=== PATIENT | female | born 1965 | race Caucasian/White ===

== ENCOUNTER 2016-10-18 19:33 | Inpatient (IN) | payer OTHER ==
[~2016-10-18] VITALS: Ht 154.9 cm; Wt 71.3 kg
[~2016-10-18 19:33] MED LIST: COGENTIN0.5 MG PO; DEPAKOTE ER250 MG PO; ESKALITH300 M1 PO; FLOMAX0.4 MG PO; Flomax PO; GABAPENTIN300 MG PO; IBUPROFEN600 MG PO; LEVOXYL125 MCG PO; LEVOXYL25 MCG PO; LITHIUM CARBON300 MG PO; LITHIUM CARBON600 MG PO; LORTAB 5-325 M1 EACH PO; Levothroid,Synthroid PO; MOTRIN600 MG PO; MULTIPLE VITAM1 EACH PO; MUPIROCIN15 GM TP; NEURONTIN300 MG PO; PERCOCET 5/31 TABLET PO; SEROQUEL200 MG PO; SEROQUEL400 MG PO; SYNTHROID125 MCG PO; SYNTHROID25 MCG PO; THERAGRAN1 TABLET PO; TOPAMAX100 MG PO; TOPAMAX200 MG PO; TRAMADOL HCL50 MG PO; WELLBUTRIN SR100 MG PO; WELLBUTRIN SR200 MG PO
[2016-10-18 20:05] LABS: HEMATOCRIT 31.1 % (36.0-46.0); MCH 29.7 PG (29.0-34.0); MCHC 33.8 G/DL (30.0-36.0); MCV 88.1 FL (83-99); MEAN PLAT.VOLUME 10.5 uM^3 (9.5-12.4); PLATELET COUNT 156 K/uL (156-360); RBC DIS.WIDTH-CV 11.7 % (11.8-14.6); RBC DIS.WIDTH-SD 36.7 % (39-53); RED BLOOD COUNT 3.53 M/uL (3.80-5.20); WHITE BLOOD COUNT 5.7 K/uL (4.1-10.2)
[2016-10-18 20:11] LABS: EOSINOPHIL (%) 0.2 % (0-5); IMMATURE GRANULOCYTE (%) 0.2 % (0.0-0.7); IMMATURE GRANULOCYTE COUNT 0.1 K/uL; LYMPHOCYTE COUNT 0.7 K/uL (1.0-2.8); NEUTROPHIL (%) 69.6 % (45-76)
[2016-10-18 20:14] LABS: CHLORIDE 108 mEq/L (99-109); POTASSIUM 3.8 mEq/L (3.7-5.4); SODIUM 138 mEq/L (136-147)
[2016-10-18 20:15] LABS: GLUCOSE 129 mg/dL (70-99)
[2016-10-18 20:17] LABS: ANION GAP 10 MEQ/L (2-14)
[2016-10-18 20:19] LABS: GFR ESTIMATE (CALCULATED) 42 mL/min/
[2016-10-18 20:20] LABS: UREA NITROGEN (BUN) 23 mg/dL (9-23)
[2016-10-18 21:37] LABS: INFLUENZA A VIRAL ANTIGEN NEGATIVE; INFLUENZA B VIRAL ANTIGEN NEGATIVE
[2016-10-18 22:25] LABS: ADD MIUA? YES; BILIRUBIN NEGATIVE; BLOOD SMALL; COLOR YELLOW ((YELLOW)); GLUCOSE (STRIP) NEGATIVE; KETONES NEGATIVE; LEUKOCYTES LARGE; NITRITE POSITIVE; PROTEIN (STRIP) NEGATIVE; SPECIFIC GRAVITY 1.006 (1.000-1.030); UROBILINOGEN 0.2 MG/DL (0.2-1.0)
[2016-10-18 22:27] LABS: BACTERIA 3+ /HPF; EPITHELIAL CELLS 1+ /HPF; MUCUS NONE SEEN /LPF; UCUL ADDED? YES; WHITE BLOOD CELLS 40-50 /HPF (0-5)
[2016-10-18] MEDS ORDERED: DEPAKOTE250 MG PO (22:41)
[2016-10-18] MEDS ORDERED: WELLBUTRIN SR200 MG PO (22:42)
[2016-10-18] MEDS ORDERED: SYNTHROID125 MCG PO (22:42)
[2016-10-18] MEDS ORDERED: TRAMADOL HCL50 MG PO (22:43)
[2016-10-18 23:51] VITALS: BP 105/60
[2016-10-19 07:22] LABS: EOSINOPHIL (%) 0.3 % (0-5); HEMATOCRIT 30.6 % (36.0-46.0); IMMATURE GRANULOCYTE (%) 0.3 % (0.0-0.7); MCV 90.8 FL (83-99); MEAN PLAT.VOLUME 11.5 uM^3 (9.5-12.4); MONOCYTE (%) 14.4 % (3-12); MONOCYTE COUNT 0.8 K/uL (0-0.8); PLATELET COUNT 164 K/uL (156-360); RBC DIS.WIDTH-CV 12.4 % (11.8-14.6); RBC DIS.WIDTH-SD 41.1 % (39-53); RED BLOOD COUNT 3.37 M/uL (3.80-5.20); WHITE BLOOD COUNT 5.8 K/uL (4.1-10.2)
[2016-10-19 07:45] LABS: ANION GAP 11 MEQ/L (2-14); CHLORIDE 110 MEQ/L (99-109); GFR ESTIMATE (CALCULATED) 46 mL/min/; GLUCOSE 108 mg/dL (70-99); POTASSIUM 3.6 MEQ/L (3.7-5.4); SAMPLE HEMOLYSIS CHECK 0; SAMPLE ICTERIC CHECK 0; SAMPLE LIPEMIA CHECK 0; SODIUM 144 MEQ/L (136-147); UREA NITROGEN (BUN) 22 mg/dL (9-23)
[2016-10-19 07:52] VITALS: BP 134/61
[2016-10-19 11:48] VITALS: BP 98/63
[2016-10-19 15:15] VITALS: BP 109/59
[2016-10-19 19:08] VITALS: BP 109/59
[2016-10-20 00:10] VITALS: BP 96/57
[2016-10-20 03:30] VITALS: BP 112/69
[2016-10-20 07:42] LABS: INTERNAL CONTROL VALID? YES
[2016-10-20 08:00] VITALS: BP 105/64
[2016-10-20 13:21] LABS: HEMATOCRIT 28.8 % (36.0-46.0); MCH 28.7 PG (29.0-34.0); MCHC 31.6 G/DL (30.0-36.0); MCV 90.9 FL (83-99); MEAN PLAT.VOLUME 10.9 uM^3 (9.5-12.4); PLATELET COUNT 183 K/uL (156-360); RBC DIS.WIDTH-CV 12.5 % (11.8-14.6); RBC DIS.WIDTH-SD 41.6 % (39-53); RED BLOOD COUNT 3.17 M/uL (3.80-5.20)
[2016-10-20 13:22] LABS: WHITE BLOOD COUNT 3.9 K/uL (4.1-10.2)
[2016-10-20 13:46] LABS: ANION GAP 10 MEQ/L (2-14); CHLORIDE 112 MEQ/L (99-109); GFR ESTIMATE (CALCULATED) > 59 mL/min/; GLUCOSE 92 mg/dL (70-99); POTASSIUM 3.7 MEQ/L (3.7-5.4); SAMPLE HEMOLYSIS CHECK 0; SAMPLE ICTERIC CHECK 0; SAMPLE LIPEMIA CHECK 0; SODIUM 145 MEQ/L (136-147); UREA NITROGEN (BUN) 13 mg/dL (9-23)
[2016-10-20 19:32] VITALS: BP 100/55
[2016-10-20 23:21] VITALS: BP 115/62
[2016-10-21 04:31] VITALS: BP 106/65
[2016-10-21 07:07] LABS: ABSOLUTE RETICULOCYTE CT. 0.02 M/uL (0.02-0.08); HEMATOCRIT 30.1 % (36.0-46.0); IMM.RETIC FRACTION 16.2 % (3-19); MCH 28.4 PG (29.0-34.0); MCHC 31.2 G/DL (30.0-36.0); MCV 90.9 FL (83-99); RBC DIS.WIDTH-CV 12.5 % (11.8-14.6); RBC DIS.WIDTH-SD 41.4 % (39-53); RED BLOOD COUNT 3.31 M/uL (3.80-5.20); RETICULOCYTE COUNT 0.7 % (0.5-1.8); WHITE BLOOD COUNT 4.3 K/uL (4.1-10.2)
[2016-10-21 07:59] LABS: MEAN PLAT.VOLUME 11.1 uM^3 (9.5-12.4); PLATELET COUNT 218 K/uL (156-360)
[2016-10-21 08:07] LABS: FERRITIN 109 NG/ML (10-291)
[2016-10-21 08:08] LABS: IRON 40 MCG/DL (35-150)
[2016-10-21 08:14] VITALS: BP 118/73
[2016-10-21 11:26] VITALS: BP 120/67
[2016-10-21] MEDS ORDERED: DOXYCYCLINE HY100 MG PO (14:08)
== END 2016-10-21 14:35 | disposition home or self-care (01) | DRG 871 ==
LOC: EME → EDBD 19:33 → EME 19:33 → EDOF 22:32 → 5WEST 22:32 → EDOF 22:32 → 5WEST 23:39 → 2EAST 10-19 12:33 → 5WEST 10-19 12:33 → 2EAST 10-19 15:09
PROVIDERS: Emergency Medicine; Hospitalist; Internal Medicine; Physician Assistant Medical
DX: A41.9 Sepsis, unspecified organism (principal); J18.9 Pneumonia, unspecified organism; J90 Pleural effusion, not elsewhere classified; N39.0 Urinary tract infection, site not specified; F33.9 Major depressive disorder, recurrent, unspecified; F84.5 Asperger's syndrome; K81.0 Acute cholecystitis; R65.10 Systemic inflammatory response syndrome (SIRS) of non-infectious origin without acute organ dysfunction; N18.3 Chronic kidney disease, stage 3 (moderate); E87.6 Hypokalemia; G89.29 Other chronic pain; D63.1 Anemia in chronic kidney disease; E03.9 Hypothyroidism, unspecified; Z60.2 Problems related to living alone; Z87.440 Personal history of urinary (tract) infections; Z87.01 Personal history of pneumonia (recurrent)
CPT/HCPCS: 71020; 80048; 80164; 81003; 82607; 82728; 82746; 83540; 83605; 84466; 85025; 85027; 85045; 87040; 87077; 87086; 87186; 87449; 87502; 99202; 99281; 99285; G0378; J0456; J0696; J1650; J1956; J7030; J7050; J7120

== ENCOUNTER 2016-11-10 20:58 | Emergency (ER) | payer OTHER ==
[~2016-11-10] VITALS: Ht 154.9 cm; Wt 69.9 kg
[~2016-11-10 20:58] MED LIST changes: +DEPAKOTE250 MG PO; +DOXYCYCLINE HY100 MG PO
[2016-11-10 21:24] LABS: MCH 29.8 PG (29.0-34.0); MCHC 32.4 G/DL (30.0-36.0); MEAN PLAT.VOLUME 11.1 uM^3 (9.5-12.4); PLATELET COUNT 210 K/uL (156-360); RBC DIS.WIDTH-CV 12.1 % (11.8-14.6); WHITE BLOOD COUNT 4.7 K/uL (4.1-10.2)
[2016-11-10 21:39] LABS: CHLORIDE 109 mEq/L (99-109); POTASSIUM 3.4 mEq/L (3.7-5.4); RED BLOOD COUNT 4.13 M/uL (3.80-5.20); SODIUM 142 mEq/L (136-147)
[2016-11-10 21:41] LABS: GLUCOSE 106 mg/dL (70-99)
[2016-11-10 21:42] LABS: ANION GAP 14 MEQ/L (2-14)
[2016-11-10 21:43] LABS: TOTAL BILIRUBIN 0.3 mg/dL (0.0-1.0)
[2016-11-10 21:45] LABS: ALKALINE PHOSPHATASE 83 IU/L (3-129); GFR ESTIMATE (CALCULATED) 42 mL/min/
[2016-11-10 21:46] LABS: UREA NITROGEN (BUN) 25 mg/dL (9-23)
[2016-11-10 21:53] LABS: QUANTITATIVE HCG < 4.0 MIU/ML
[2016-11-11 01:33] LABS: ADD MIUA? NO; BILIRUBIN NEGATIVE; BLOOD NEGATIVE; COLOR YELLOW ((YELLOW)); GLUCOSE (STRIP) NEGATIVE; KETONES NEGATIVE; LEUKOCYTES NEGATIVE; NITRITE NEGATIVE; PROTEIN (STRIP) NEGATIVE; SPECIFIC GRAVITY 1.011 (1.000-1.030); UCUL ADDED? NO; UROBILINOGEN 0.2 MG/DL (0.2-1.0)
[2016-11-11 02:39] VITALS: BP 111/81
== END 2016-11-11 02:52 | disposition home or self-care (01) ==
LOC: EME 20:58
DX: K59.00 Constipation, unspecified (principal); R33.9 Retention of urine, unspecified; E03.9 Hypothyroidism, unspecified; F84.5 Asperger's syndrome; G89.29 Other chronic pain
CPT/HCPCS: 80053; 81003; 84702; 85027; 99281; 99284

== ENCOUNTER → 2017-06-10 | Outpatient (CLI) | payer MEDICARE, OTHER | END | disposition home or self-care (01) | LOC: CDC 10:12 | DX: Z01.810 Encounter for preprocedural cardiovascular examination (principal); G56.01 Carpal tunnel syndrome, right upper limb; M65.311 Trigger thumb, right thumb; I45.10 Unspecified right bundle-branch block | CPT/HCPCS: 93000 ==